=== PATIENT | male | born 1995 | race Caucasian/White ===

== ENCOUNTER 2017-12-15 06:09 | Day surgery (SDC) | payer BC ==
[2017-12-14 09:30] VITALS: BMI 21.6
[2017-12-15] MEDS ORDERED: DEXAMETHASONE SOD PHOSPHATE/PF 10 MG/ML SDV ONE (07:31)
[2017-12-15] MEDS ORDERED: ROPIVACAINE HCL 0.5% 30ML VIAL ONE (07:31)
[2017-12-15] MEDS ORDERED: MIDAZOLAM HCL 2 MG/2 ML SINGLE DOSE VIAL ONE ×2 (07:32)
[2017-12-15] MEDS ORDERED: LIDOCAINE HCL/PF 2% SDV 5ML VIAL ONE (07:46)
[2017-12-15] MEDS ORDERED: ROCURONIUM BROMIDE 50 MG/5 ML VIAL ONE (07:47)
[2017-12-15] MEDS ORDERED: PROPOFOL 20 ML ONE ×3 (07:47→07:58)
[2017-12-15] MEDS ORDERED: SUCCINYLCHOLINE CHLORIDE 200 MG/10 ML VIAL ONE (07:47)
[2017-12-15] MEDS ORDERED: fentaNYL CITRATE 250 MCG/5 ML VIAL ONE (07:57)
[2017-12-15] MEDS ORDERED: ceFAZolin SODIUM 1 GM VIAL IVPB ONE (08:30)
[2017-12-15] MEDS ORDERED: DEXAMETHASONE SOD PHOSPHATE 4 MG/1 ML VIAL ONE (08:49)
[2017-12-15] MEDS ORDERED: DESFLURANE GAS 240 ML BOTTLE IH ONE (09:15)
--- NOTE | 2017-12-15 09:42 | OP ---
Operative Note - Note: Operative Date: 12/15/17 Pre-Operative Diagnosis: R ACL TEAR Operation: R ACL RECON AND PARTIAL LM Post-Operative Diagnosis: Other (SAME + LATERAL MENISCUS TEAR) Surgeon: Dane Sen Spool Cleaner Hand: Mahesh Jameson Estimated Blood Loss (mls): 0 Operative Report Dictated: Yes
[2017-12-15] MEDS ORDERED: ONDANSETRON 4 MG/2 ML VIAL IVPUSH PRN (10:58)
[2017-12-15] MEDS ORDERED: oxyCODONE HCL 5 MG TABLET PO PRN (10:58)
--- NOTE | 2017-12-15 12:44 | OP ---
DATE OF OPERATION: 12/15/2017 PREOPERATIVE DIAGNOSIS: Right anterior cruciate ligament tear. POSTOPERATIVE DIAGNOSIS: Right anterior cruciate ligament tear plus lateral meniscus tear. PROCEDURE: Right anterior cruciate ligament reconstruction with bone patellar bone autograft harvesting and partial lateral meniscectomy. SURGICAL ATTENDING: Dane Sen MD RESEARCH BIOSTATISTICIAN: MISTY Hernandes ANESTHESIA: Regional and general. CLOSURE: Arthrex interference screw fixation for graft and 2-0 for paratenon and subcutaneous, 3-0 Monocryl for skin with skin glue. ESTIMATED BLOOD LOSS: Negligible. COMPLICATIONS: None. CONDITION: To recovery room in stable condition. DESCRIPTION OF OPERATIVE PROCEDURE: The patient was taken to the operating room on December 15, 2017. Regional and general anesthesia was administered by the anesthesiologist. IV Kefzol was given prophylactically prior to the case. Patient was placed supine on the operating table. A well-padded pneumatic tourniquet was placed on the proximal thigh. The right lower extremity was prepped and draped in the usual sterile fashion. First the graft was harvested. The leg was exsanguinated with an Esmarch bandage and the tourniquet was inflated to 275 mmHg. A 6-cm longitudinal midline incision centered over the patellar tendon was incised. Hemostasis was achieved with Bovie cautery. Sharp dissection was carried down to the level of the extensor mechanism from mid-patella to tibial tubercle. The central 10 mm of the tendon were harvested using a 10 mm double blade. The 10 x 25 mm plugs were then harvested from the patella and tibial tubercle using a micro-oscillating saw. Drill holes were drilled through each plug for allowing of passage of No. 2 FiberWire traction sutures. The rent in the patellar tendon was closed using 0 Vicryl interrupted suture. The donor site was filled with [place] Putty. The graft was contoured and fashioned to fit snuggly through 10-mm sizers, was placed on the back table for later use. Next, the arthroscopic portion of the case was performed, where the portals were made with a 15-blade followed by blunt trocar. The medial and lateral infrapatellar portals were made through the previously made incision. Scope was placed in the lateral infrapatellar portal and up into the suprapatellar pouch. Pouch was visualized to be clean. The medial and lateral gutters were visualized to be clean. The undersurface of the patella and trochlea were visualized to be intact. With valgus stress on the knee, the medial compartment was entered. The medial meniscus was visualized, probed, and found to be intact. The medial femoral condyle was run and found to be intact as was the medial tibial plateau. In the figure 4 position, lateral compartment was entered. Lateral meniscus was found to have a flap tear. This was debrided back to smooth, stable meniscal tissues with meniscal biter and arthroscopic shaver. The lateral femoral condyle was run and found to be intact as was the lateral tibial plateau. At 90 degrees, the ACL was found to be completely torn. The PCL was found to be intact. The stump of the ACL was debrided using the shaver. A notchplasty was then performed to gain sufficient width and height of the notch to seat appropriate position of the femoral tunnel and allow space for the new ACL graft. A tibial guide was sused to drill guidewire from the anteromedial proximal tibia up into the knee just anterior to the PCL. This was over-reamed with a 10-mm reamer. All particulate inside the debris was removed using the shaver. With the knee flexed greater than 120 degrees and using the AM portal, a Beath pin was drilled in the posterior aspect of the notch until it exited the anterolateral distal thigh. This was done around the 10 o'clock position. This was over-reamed with a 10 mm flat reamer to the appropriate depth as determined by the length of the graft. All bone fragments were debrided using the shaver. A traction suture was placed through the check pilot hole of the Beath pin and pulled out the anterolateral distal thigh and down the tibial tunnel, as well. The suture was used to shuttle the traction sutures and the graft into the knee, then pulling the ACL graft into the knee. An 8 x 25 mm metallic Arthrex interference screw was placed between the femoral bone plug and the femoral tunnel, through the AM portal with the knee flexed greater than 120 degrees. Excellent fixation was obtained. The knee was taken through a range of motion and found that the ACL tracked well over the PCL and did not impinge by any part of the notch throughout the range of motion from full extension to full flexion. With 20 degrees of flexion and posterior drawer being applied, a 9 x 25 mm tibial fully-threaded metallic Arthrex interference screw was placed between the tibial bone plug and the tibial tunnel achieving excellent fixation. The knee was taken through a range of motion and found to go from full extension and full flexion with negative Daniel, negative pivot, negative anterior drawer. Direct visualization of the graft again revealed good tension of the graft with good crossing of the PCL and no impingement on the notch. Traction sutures were removed. The paratenon was closed using 2-0 Vicryl running suture, 2-0 for subcutaneous, and 3-0 Monocryl subcuticular with skin glue to the skin. Sterile pressure dressing followed by a knee immobilizer was applied. Tourniquet was deflated with a total tourniquet of time of approximately one hour. No complications. Karishma PHAM/[id number]
[2017-12-15 13:44] VITALS: BP 116/66; PULSE 92; TEMP 97.8
--- NOTE | 2017-12-16 17:36 | PATH ---
Surgical Pathology Report Patient Name: JESSE IGLESIAS [facility]. Rec. #: [id number] /Age/Gender: 1995 (Age: 22) / M Account: [id number] Location: [facility] SURGICAL Taken: 12/15/2017 Received: 12/15/2017 Reported: 12/16/2017 Physicians: Dane Sen M.D. Specimen(s) Received RIGHT KNEE SHAVINGS Clinical History Right knee ACL tear Final Diagnosis KNEE SHAVINGS, RIGHT, ACL REPAIR: FRAGMENTS OF CARTILAGE, DENSE FIBROCONNECTIVE TISSUE, ADIPOSE TISSUE, AND SYNOVIUM. Electronically Signed Claudia Canas M.D. Gross Description Received in formalin labeled "right knee shavings," is a 4.5 x 3.5 x 0.6 cm aggregate of camejo-yellow soft tissue fragments. A sales representative groceries portion is submitted in one cassette. /12/15/2017 saudi/12/15/2017
== END 2017-12-15 13:30 | disposition home or self-care (01) ==
LOC: JASU-SURG 06:09
PROVIDERS: ATTEND Orthopaedic Surgery
PROC: 0SBC4ZZ Excision of Right Knee Joint, Percutaneous Endoscopic Approach (ICD-10-PCS; 2017-12-15)
PROC: 0MRN4JZ Replacement of Right Knee Bursa and Ligament with Synthetic Substitute, Percutaneous Endoscopic Approach (ICD-10-PCS; principal; 2017-12-15 08:00)
DX: S83.511A Sprain of anterior cruciate ligament of right knee, initial encounter (principal); S83.281A Other tear of lateral meniscus, current injury, right knee, initial encounter; X58.XXXA Exposure to other specified factors, initial encounter; Y93.9 Activity, unspecified; Y92.9 Unspecified place or not applicable
CPT/HCPCS: 88304-TC; 94760; 97116-GP